=== PATIENT | male | born 1960 | race Caucasian/White ===

== ENCOUNTER 2016-12-29 03:20 | Emergency (ER) | payer SELFPAY ==
[~2016-12-29] VITALS: Ht 175.3 cm; Wt 74.5 kg
[2016-12-29 03:27] VITALS: Ht 175.3 cm; Wt 74.5 kg
== END 2016-12-29 04:27 | disposition left against medical advice (07) ==
LOC: E/R 03:20
DX: Z53.21 Procedure and treatment not carried out due to patient leaving prior to being seen by health care provider (principal)

== ENCOUNTER 2017-03-22 02:51 | Emergency (ER) | payer BC ==
[~2017-03-22] VITALS: Ht 167.6 cm; Wt 75.0 kg
[2017-03-22 02:55] VITALS: Ht 167.6 cm; Wt 75.0 kg
[2017-03-22] MEDS ORDERED: ASPIRIN 325 MG TAB PO STA (03:03)
--- NOTE | 2017-03-22 03:09 | ERA ---
ER Documentation Chief Complaint Date/Time DATE: 03/22/17 TIME: 03:08 Chief Complaint CP x 45 min. Non-provoked. Non-radiating. "pressure." HPI 47-year-old male complains of a pressure-like substernal chest pain going on for approximately 45 minutes. He was resting when he got the pain. Is nonradiating. He does have some shortness of breath but no nausea or vomiting. ROS All systems reviewed and are negative except as per history of present illness. Allergies Allergies: Coded Allergies: No Known Allergy (Unverified , 03/22/17) Physical Exam Vitals Vital Signs Date Time Temp Pulse Resp B/P Pulse Ox O2 Delivery O2 Flow Rate FiO2 03/22/17 02:55 98.3 111 20 121/80 96 Physical Exam Const: [] No distress n Head: Atraumatic Eyes: Normal Conjunctiva ENT: Normal External Ears, Nose and Mouth. Neck: Full range of motion..~ No meningismus. Resp: Clear to auscultation bilaterally Cardio: Regular rate and rhythm, no murmurs Abd: Soft, non tender, non distended. Normal bowel sounds Skin: No petechiae or rashes Back: No midline or flank tenderness Ext: No cyanosis, or edema Neur: Awake and alert Psych: Normal Mood and Affect Result Diagram: 03/22/1731803/22/17 031 Results 24 hrs Laboratory Tests Test 03/22/17 03:19 White Blood Count 7.110^3/ul Red Blood Count 4.8710^6/ul Hemoglobin 13.8g/dl Hematocrit 41.3% Mean Corpuscular Volume 84.8fl Mean Corpuscular Hemoglobin 28.3pg Mean Corpuscular Hemoglobin Concent 33.4g/dl Red Cell Distribution Width 13.4% Platelet Count 24911^3/UL Mean Platelet Volume 10.3fl Neutrophils % 57.8% Lymphocytes % 30.3% Monocytes % 6.7% Eosinophils % 3.9% Basophils % 1.0% Nucleated Red Blood Cells % 0.0/100WBC Neutrophils # 4.110^3/ul Lymphocytes # 2.210^3/ul Monocytes # 0.510^3/ul Eosinophils # 0.310^3/ul Basophils # 0.110^3/ul Nucleated Red Blood Cells # 0.010^3/ul Prothrombin Time 12.6Sec Prothrombin Time Ratio 1.0 INR International Normalized Ratio 0.94 Activated Partial Thromboplast Time 30.7Sec Sodium Level 138mmol/L Potassium Level 3.3mmol/L Chloride Level 108mmol/L Carbon Dioxide Level 21mmol/L Anion Gap 12 Blood Urea Nitrogen 14mg/dl Creatinine 0.93mg/dl Glucose Level 99mg/dl Calcium Level 9.4mg/dl Creatine Kinase 120IU/L Creatine Kinase Index 0.8 Creatinine Kinase MB (Mass) 0.95ng/ml Troponin I < 0.012ng/ml B-Type Natriuretic Peptide 76PG/ML Current Medications Medications (Trade) Dose Ordered Sig/Laurie Route PRN Reason Start Time Stop Time Status Last Admin Dose Admin Aspirin (Aspirin) 325 mg ONCE STAT PO 03/22/17 03:03 03/22/17 03:05 DC 03/22/17 03:15 Nitroglycerin (Nitroglycerin (Sl Tab) 0.4 Mg) 1 tab Q5M UP TO 3 DOSES PRN SL CHEST PAIN 03/22/17 03:30 03/22/17 03:15 Procedures/MDM 56-year-old male with chest pain with ischemic changes in his EKG consistent with his prior EKG when she left AMA. Patient has initial negative troponin but symptoms started acutely prior to the time and troponin would rise in the blood. I did tell the patient has a concerning story especially as his chest pain was relieved by the nitroglycerin he was given on the second tab. Is also given 325 mg of aspirin. I told him that I may be advising him to stay at least for re-troponin but possibly for an admission for ultrasound of his heart. He did state that he had a 9:00 appointment in the morning. He said that he would stay because I am the doctor and he will do what I advised.. He subsequently eloped from the emergency room with his IV. EKG interpretation: Normal sinus rhythm rate of 99, normal axis, no ST or T- wave changes concerning for acute ischemia. Although the patient does have ST depressions in anterolateral inferior leads this was present on his previous EKG he has no new ischemic changes.. community relations assistant interpretation: Normal sinus rhythm without arrhythmia Chest and interpretation: I see no acute process, no Miko, pneumothorax, no fractures. Departure Diagnosis: Primary Impression: Chest pain Condition: SUZY Holder DO Mar 22, 2017 03:09
[2017-03-22] MEDS ORDERED: NITROGLYCERIN (SL) 0.4 MG TAB SL PRN (03:30)
[2017-03-22 03:42] LABS: ADD SCAN DIFF NO
[2017-03-22 04:00] LABS: INR 0.94; PROTIME 12.6 Sec (12.2-14.2)
[2017-03-22 04:01] LABS: PARTIAL THROMBOPLASTIN TIME 30.7 Sec (25.0-35.0)
[2017-03-22 04:03] LABS: ANION GAP 12 (8-16); BLOOD UREA NITROGEN 14 mg/dl (7-20); CALCIUM 9.4 mg/dl (8.4-10.2); CARBON DIOXIDE 21 mmol/L (21-31); CHLORIDE 108 mmol/L (97-110); CREATINE KINASE 120 IU/L (23-200); CREATININE 0.93 mg/dl (0.61-1.24); GLUCOSE 99 mg/dl (70-220); POTASSIUM 3.3 mmol/L (3.5-5.1); SODIUM 138 mmol/L (135-144)
--- NOTE | 2017-03-22 04:11 | RADRPT ---
PROCEDURE: XR Chest. CLINICAL INDICATION: Chest pain TECHNIQUE: AP Portable chest. COMPARISON: No pertinent prior examinations were submitted for comparison. FINDINGS: The cardiomediastinal silhouette is normal. The lungs are clear. The osseous structures are unrema rkable. IMPRESSION: No acute findings. RPTAT: HIKT .Ferny Prado MD, MD Date Time Electronically viewed and signed by .Ferny Prado MD, MD on 03/22/2017 04:10 .T/
[2017-03-22 04:12] LABS: BASOPHIL # 0.1 10^3/ul (0.0-0.1); EOSINOPHILS # 0.3 10^3/ul (0.0-0.5); EOSINOPHILS % 3.9 % (0.0-7.0); HEMATOCRIT 41.3 % (42.0-52.0); HEMOGLOBIN 13.8 g/dl (14.0-18.0); LYMPHOCYTES # 2.2 10^3/ul (0.8-2.9); LYMPHOCYTES % 30.3 % (15.0-51.0); MEAN CORPUSCULAR HEMOGLOBIN 28.3 pg (29.0-33.0); MEAN CORPUSCULAR HGB CONC 33.4 g/dl (32.0-37.0); MEAN CORPUSCULAR VOLUME 84.8 fl (82.0-101.0); MEAN PLATELET VOLUME 10.3 fl (7.4-10.4); MONOCYTE # 0.5 10^3/ul (0.3-0.9); MONOCYTES % 6.7 % (0.0-11.0); NEUTROPHIL # 4.1 10^3/ul (1.6-7.5); NEUTROPHILS % 57.8 % (39.0-77.0); PLATELET COUNT 215 10^3/UL (140-415); RED BLOOD COUNT 4.87 10^6/ul (4.70-6.10); RED CELL DISTRIBUTION WIDTH 13.4 % (11.5-14.5); WHITE BLOOD COUNT 7.1 10^3/ul (4.8-10.8)
[2017-03-22 04:14] LABS: B-TYPE NATRIURETIC PEPTIDE 76 PG/ML (0-125)
[2017-03-22 04:15] LABS: CK-MB 0.95 ng/ml (0.0-2.4); TROPONIN-I < 0.012 ng/ml (0.00-0.12)
== END 2017-03-22 08:07 | disposition left against medical advice (07) ==
LOC: E/R 02:51
DX: R07.2 Precordial pain (principal); R06.02 Shortness of breath
CPT/HCPCS: 36415; 71010; 80048; 82550; 82553; 83880; 84484; 85025; 85610; 85730; 93005; 99285; Z7610

== ENCOUNTER → 2019-01-01 | Outpatient (CLI) | payer BC | END | disposition home or self-care (01) | LOC: LAB 15:57 | PROVIDERS: ATTEND Internal Medicine | DX: R76.8 Other specified abnormal immunological findings in serum (principal); R07.9 Chest pain, unspecified | CPT/HCPCS: 80048 ==

== ENCOUNTER → 2019-01-31 | Outpatient (CLI) | payer BC ==
[~2019-01-31] MED LIST: IOHEXOL 100 ML ONE; METOPROLOL 100 MG TAB ONE; NITROGLYCERIN AEROSOL (4.9 GM) ONE; SOD CHLORIDE 0.9% 100 ML ONE
== END | disposition home or self-care (01) ==
LOC: C/S 09:10
PROVIDERS: ATTEND Internal Medicine
DX: R94.39 Abnormal result of other cardiovascular function study (principal); R07.9 Chest pain, unspecified
CPT/HCPCS: 75571; 75574; Q9967; Z7610

== ENCOUNTER 2019-02-16 07:16 | Emergency (ER) | payer BC ==
[~2019-02-16] VITALS: Ht 167.6 cm; Wt 83.9 kg
[2019-02-16 07:26] VITALS: Ht 167.6 cm; Wt 83.9 kg
--- NOTE | 2019-02-16 07:29 | ERD ---
ER Documentation Chief Complaint Chief Complaint CHEST PAIN ONSET 30 MINUTES AGO HPI 58-year-old male presents for evaluation of chest pain that started about 30 minutes ago. Patient states that he was driving when it occurred, symptoms are intermittent, left-sided chest, radiating to arm, sharp. He denies shortness of breath, no leg swelling, no history of immobility. He does have a history of tobacco use and hypertension ROS All systems reviewed and are negative except as per history of present illness. Allergies Allergies: Coded Allergies: No Known Allergy (Unverified , 03/22/17) PMhx/Soc Hx Alcohol Use: Yes Hx Substance Use: No Hx Tobacco Use: No FmHx Family History: diabetes Physical Exam Vitals Vital Signs Date Temp Pulse Resp B/P (MAP) Pulse Ox O2 O2 Flow FiO2 Time Delivery Rate 02/16/19 97.8 105 16 146/92 97 07:26 (110) Physical Exam Const: No acute distress Head: Atraumatic Eyes: Normal Conjunctiva ENT: Normal External Ears, Nose and Mouth. Neck: Full range of motion. No meningismus. Resp: Clear to auscultation bilaterally Cardio: Regular rate and rhythm, no murmurs Abd: Soft, non tender, non distended. Normal bowel sounds Skin: No petechiae or rashes Back: No midline or flank tenderness Ext: No cyanosis, or edema Neur: Awake and alert Psych: Normal Mood and Affect Result Diagram: 02/16/19 0738 02/16/19 0738 Results 24 hrs Laboratory Tests Test 02/16/19 07:38 White Blood Count 6.5 10^3/ul Red Blood Count 5.07 10^6/ul Hemoglobin 14.4 g/dl Hematocrit 43.2 % Mean Corpuscular Volume 85.2 fl Mean Corpuscular Hemoglobin 28.4 pg Mean Corpuscular Hemoglobin Concent 33.3 g/dl Red Cell Distribution Width 13.1 % Platelet Count 231 10^3/UL Mean Platelet Volume 9.5 fl Immature Granulocytes % 0.200 % Neutrophils % 56.5 % Lymphocytes % 29.9 % Monocytes % 8.4 % Eosinophils % 3.9 % Basophils % 1.1 % Nucleated Red Blood Cells % 0.0 /100WBC Immature Granulocytes # 0.010 10^3/ul Neutrophils # 3.7 10^3/ul Lymphocytes # 1.9 10^3/ul Monocytes # 0.5 10^3/ul Eosinophils # 0.3 10^3/ul Basophils # 0.1 10^3/ul Nucleated Red Blood Cells # 0.0 10^3/ul Sodium Level 142 mmol/L Potassium Level 3.6 mmol/L Chloride Level 108 mmol/L Carbon Dioxide Level 21 mmol/L Anion Gap 13 Blood Urea Nitrogen 13 mg/dl Creatinine 0.97 mg/dl Est Glomerular Filtrat Rate mL/min > 60 mL/min Glucose Level 107 mg/dl Calcium Level 9.2 mg/dl Total Bilirubin 0.8 mg/dl Direct Bilirubin 0.00 mg/dl Indirect Bilirubin 0.8 mg/dl Aspartate Amino Transf (AST/SGOT) 31 IU/L Alanine Aminotransferase (ALT/SGPT) 32 IU/L Alkaline Phosphatase 44 IU/L Troponin I < 0.012 ng/ml B-Type Natriuretic Peptide 55 PG/ML Total Protein 7.2 g/dl Albumin 4.5 g/dl Globulin 2.70 g/dl Albumin/Globulin Ratio 1.66 Current Medications Medications Dose Sig/Laurie Start Time Status Last (Trade) Ordered Route PRN Stop Time Admin Dose Reason Admin Aspirin 325 mg ONCE STAT 02/16/19 DC 02/16/19 (Aspirin) PO 07:52 02/16/19 08:12 07:55 1 tab Q5M UP TO 3 02/16/19 02/16/19 Nitroglycerin DOSES PRN 08:00 08:12 SL .CHEST (Nitroglyceri PAIN n (Sl Tab) 0.4 Mg) [place] [id number] Radiology Main Line: [phone] DIAGNOSTIC IMAGING REPORT Patient: LAKEISHA PAGE : 1960 Age: 58 Sex: M MR #: [id number] DOS: 01/31/19 0923 Ordering MD: SAADIA MATIAS MD Location: C/S Room/Bed: PROCEDURE: CTA of the coronary arteries. CLINICAL INDICATION: Chest pain COMPARISON: No previous relevant images are available for comparison. TECHNIQUE: CTA of the coronary arteries with multiphasic ECG-gated volumetric acquisition from the ascending aorta to the diaphragm performed with intravenous contrast on a high-resolution multi detector scanner with multiphasic reconstructions. Multiplanar reconstructions, three-dimensional reconstructions, as well as maximal intensity projection images are produced and reviewed. One or more of the following dose reduction techniques were used: Automated exposure control; Adjustment of the mA and/or kV according to patient size; Use of iterative reconstruction technique; ECG dose modulation. CTDI = 8, 2, 2, 44, 75 mGy. DLP = 1478 mGy-cm. DICOM images are available. Stenosis classification of vessels greater than 1.5 mm in diameter: None 0%, Minimal 1-24%, Mild 25-49%, Moderate 50-69%, Severe 70-99%, Occluded 100% CONTRAST: 100 mL of Omnipaque 350 intravenously without adverse event. FINDINGS: Overall exam quality and angiographic enhancement: Excellent. Origins and course of the coronary arteries: Normal. Coronary artery system dominance pattern: Left Total calcium score: 255 Not fully diagnostic segments due to artifacts: None. RCA: Normal. LM: Normal. RI: Absent. LAD: Small plaques in the proximal segment of vessel producing less than 25% stenosis. Superficial bridging present within the mid segment. Mid and distal segments are otherwise normal. Diags: Normal. LCX: Small plaques in the proximal segment do not produce any stenosis. Mid and distal segments are normal. OMs: Normal. PDA: Normal. Pericardium: Normal. Pericardial effusion: None. Heart size: Normal. Aortic valve: Trileaflet morphology. No evidence of thickening or calcification. Normal diastolic coaptation. Mitral valve: Normal morphology. No evidence of thickening or calcification. Myocardial attenuation: Normal. Intracardiac enhancement: No left-sided filling defects to suggest the presence of mass or thrombus. Left atrial appendage is well opacified. Extracardiac findings within the partially visualized chest: Aorta: Normal caliber. Lung parenchyma: No evidence of airspace or interstitial disease. Airways: Clear; normal caliber and configuration. Pulmonary arteries: Normal caliber centrally. Branch vessels are incompletely visualized. Thoracic veins: Normal appearance for the phase of enhancement. Mediastinum: No evidence of mass or fluid collection. Lymph nodes: No mediastinal, hilar, or axillary lymphadenopathy. Osseous structures: Intact. Upper abdomen: No abnormalities. Other findings: None. IMPRESSION: Total calcium score: 255 RCA: Normal. LM: Normal. LAD: Small plaques in the proximal segment of vessel producing less than 25% stenosis. Superficial bridging present within the mid segment. Mid and distal segments are otherwise normal. LCX: Small plaques in the proximal segment do not produce any stenosis. Mid and distal segments are normal. RPTAT: AADD .Shahbaz Monreal MD, MD Date Time Electronically viewed and signed by .Shahbaz Monreal MD, MD on 01/31/2019 11:36 .B/ CC: SAADIA MATIAS CliffKrystina [phone] Procedures/MDM This is a 58-year-old male who presents for evaluation of chest pain. He had a coronary CT that showed less than 25% stenosis. Patient still having some pain on exam, he was given aspirin and nitroglycerin with some improvement. 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 I discussed findings with the patient, his first troponin was negative, as his pain had not completely resolved, he agreed to be admitted for observation. First troponin was negative. Chest X-ray 1V Interpreted by me: Soft Tissue: No acute abnormalities Bones: No acute abnormalities Mediastinum/Cardiac Silhouette/Lungs: No acute abnormalities EKG: Rate/Rhythm: Normal Sinus Rhythm QRS, ST, T-waves: No changes consistent w/ acute ischemia Impression: Minimal ST depressions in anterolateral leads, no elevations, no evidence of acute ischemia or arrhythmia Accepting Care Team: Current data and ongoing care discussed. Primary: Seb Consulting: None Outstanding Data: none Departure Diagnosis: Primary Impression: Chest pain Chest pain type: unspecified Qualified Codes: R07.9 - Chest pain, unspecified Condition: Stable PAPO ROTHMAN MD Feb 16, 2019 07:29
[2019-02-16] MEDS ORDERED: ASPIRIN 325 MG TAB PO STA (07:52)
[2019-02-16] MEDS ORDERED: NITROGLYCERIN (SL) 0.4 MG TAB SL PRN (08:00)
[2019-02-16 09:08] VITALS: BP 110/83; PULSE 82; RESP 18
[2019-02-16] MEDS ORDERED: METO-335 PO (09:21)
[2019-02-16] MEDS ORDERED: RAMI5CAP64 PO (09:21)
== END 2019-02-16 10:27 | disposition left against medical advice (07) ==
LOC: E/R 07:16 → CANBEDREQ 11:43
DX: I10 Essential (primary) hypertension (principal); Z87.891 Personal history of nicotine dependence
CPT/HCPCS: 71045; 80053; 83880; 84484; 85025; 93005; Z7502; Z7610